=== PATIENT | male | born 1970 | race Two or more races ===

== ENCOUNTER 2018-04-25 12:51 | Inpatient (IN) | payer MEDICAID, OTHER ==
[~2018-04-25] VITALS: Ht 177.8 cm; Wt 115.2 kg
[2018-04-25] MEDS ORDERED: PANTOPRAZOLE 40 MG/10 ML VIAL IV STA (13:44)
[2018-04-25] MEDS ORDERED: SODIUM CHLORIDE 0.9% 500 ML IVB ONE (13:44)
[2018-04-25] MEDS ORDERED: MORPHINE SULFATE 4 MG/ML SYR/VIAL IV ONE (13:45)
[2018-04-25] MEDS ORDERED: ONDANSETRON HCL 4 MG/2 ML VIAL IV ONE (13:45)
[2018-04-25 13:46] LABS: Basophils # (auto) 0.1 uL; Basophils % (auto) 0.8 % (0.0-2.0); Eosinophils # (auto) 0 uL; Eosinophils % (auto) 0.1 % (0.0-7.0); Hematocrit 40.4 % (41.0-53.0); Hemoglobin 13.8 g/dL (13.5-17.5); Lymphocytes # (auto) 1.8 uL; Lymphocytes % (auto) 14.3 % (10.0-50.0); Mean Corpuscular Hemoglobin 29.8 pg (28.0-32.0); Mean Corpuscular Hgb Conc. 34.1 g/dL (32.0-36.0); Mean Corpuscular Volume 87.3 fL (80.0-100.0); Monocytes # (auto) 0.8 uL; Monocytes % (auto) 6.2 % (0.0-12.0); Neutrophils # (auto) 9.8 uL; Neutrophils % (auto) 78.6 % (37.0-80.0); Platelet Count (auto) 305 10^3/uL (140-450); Red Blood Cells 4.63 10^6/uL (4.5-5.90); Red Cell Distribution Width 14.3 % (11.8-14.3); White Blood Cell 12.5 10^3/uL (4.4-10.8)
[2018-04-25 14:02] LABS: Albumin 3.7 g/dL (3.4-5.0); BUN/Creatinine Ratio 11.8; Bilirubin, Total 0.5 mg/dL (0.2-1.0); Calcium 8.5 mg/dL (8.5-10.1); Potassium 3.9 mmol/L (3.5-5.1); Total Protein 8.6 g/dL (6.4-8.2)
[2018-04-25 14:21] LABS: Magnesium 2.3 mg/dL (1.6-2.6)
[2018-04-25 15:26] LABS: Urine Bacteria NONE SEEN /hpf (None Seen); Urine Blood Negative /uL (Negative); Urine Hyaline Cast FEW /lpf (0 - 2); Urine Mucus FEW (None Seen); Urine Specific Gravity 1.029 (1.001-1.035); Urine WBC 3 /hpf (0 - 3)
[2018-04-25] MEDS ORDERED: NITROGLYCERIN 0.4 MG SL TAB SL PRN (15:30)
[2018-04-25] MEDS ORDERED: PANTOPRAZOLE 40 MG/10 ML VIAL IV ONE (15:30)
[2018-04-25] MEDS ORDERED: cefTRIAXone 1GM/10ml IVPUSH 10 ML IV ONE (15:30)
[2018-04-25] MEDS ORDERED: MORPHINE SULF INJ 2 MG/ML SYRINGE 1ML IV PRN (15:30)
[2018-04-25] MEDS ORDERED: DEXTROSE (50%) 50ML SYRG IV PRN (15:30)
[2018-04-25] MEDS: SODIUM CHLORIDE 0.9% 1,000 ML IV SCH ×2 (15:34→23:13)
[2018-04-25] MEDS: MORPHINE SULF INJ 2 MG/ML SYRINGE 1ML IV PRN (15:45)
[2018-04-25] MEDS ORDERED: SODIUM CHLORIDE 0.9% 1,000 ML IV ONE (15:45)
[2018-04-25] MEDS: metroNIDAZOLE 500MG/100ML 100 ML IV SCH ×2 (17:55→23:13)
[2018-04-25] MEDS: ACCU-CHEK COMFORT CURVE STRIP VI SCH ×2 (17:57→23:12)
[2018-04-25] MEDS: InsuLIN REG 1unit/0.01ml Soln (100units/ml) SC SCH ×2 (17:57→23:12)
[2018-04-25] MEDS: MORPHINE SULFATE 4 MG/ML SYR/VIAL IV PRN (20:06)
[2018-04-25] MEDS: PROMETHAZINE HCL 25 MG/ML 1ML IV PRN (20:06)
[2018-04-25 21:00] VITALS: BP 132/78
[2018-04-25 22:00] VITALS: BP 163/92
[2018-04-25] MEDS: LORazepam 2MG/ML-1ML VIAL IV PRN (22:35)
[2018-04-26] MEDS: MORPHINE SULFATE 4 MG/ML SYR/VIAL IV PRN ×4 (04:46→13:11)
[2018-04-26] MEDS: PROMETHAZINE HCL 25 MG/ML 1ML IV PRN ×5 (04:46→21:43)
[2018-04-26 05:00] VITALS: BP 134/67
[2018-04-26] MEDS: ACCU-CHEK COMFORT CURVE STRIP VI SCH ×3 (05:40→17:32)
[2018-04-26] MEDS: metroNIDAZOLE 500MG/100ML 100 ML IV SCH ×4 (05:40→23:58)
[2018-04-26] MEDS: InsuLIN REG 1unit/0.01ml Soln (100units/ml) SC SCH ×3 (05:41→17:38)
[2018-04-26 07:09] LABS: Basophils # (auto) 0 uL; Basophils % (auto) 0.2 % (0.0-2.0); Eosinophils # (auto) 0 uL; Eosinophils % (auto) 0.3 % (0.0-7.0); Hematocrit 38.4 % (41.0-53.0); Hemoglobin 13.1 g/dL (13.5-17.5); Lymphocytes # (auto) 1.2 uL; Lymphocytes % (auto) 10.8 % (10.0-50.0); Mean Corpuscular Hemoglobin 29.9 pg (28.0-32.0); Mean Corpuscular Hgb Conc. 34.2 g/dL (32.0-36.0); Mean Corpuscular Volume 87.5 fL (80.0-100.0); Monocytes # (auto) 0.8 uL; Monocytes % (auto) 6.9 % (0.0-12.0); Neutrophils # (auto) 8.9 uL; Neutrophils % (auto) 81.8 % (37.0-80.0); Platelet Count (auto) 284 10^3/uL (140-450); Red Blood Cells 4.38 10^6/uL (4.5-5.90); Red Cell Distribution Width 14.5 % (11.8-14.3); White Blood Cell 10.9 10^3/uL (4.4-10.8)
[2018-04-26 07:28] LABS: Albumin 3.3 g/dL (3.4-5.0); BUN/Creatinine Ratio 12.3; Bilirubin, Total 0.5 mg/dL (0.2-1.0); Calcium 7.8 mg/dL (8.5-10.1); Potassium 3.7 mmol/L (3.5-5.1); Total Protein 7.7 g/dL (6.4-8.2)
[2018-04-26 08:00] VITALS: BP 155/85
[2018-04-26 09:00] VITALS: BP 155/85
[2018-04-26] MEDS: PANTOPRAZOLE 40 MG/10 ML VIAL IV SCH (09:04)
[2018-04-26] MEDS: cefTRIAXone 1GM/10ml IVPUSH 10 ML IV SCH (09:04)
[2018-04-26] MEDS: SODIUM CHLORIDE 0.9% 1,000 ML IV SCH ×2 (10:42→21:41)
[2018-04-26 13:00] VITALS: BP 160/73
[2018-04-26 17:00] VITALS: BP 137/83
[2018-04-26] MEDS: MORPHINE SULF INJ 2 MG/ML SYRINGE 1ML IV PRN ×2 (17:32→21:42)
[2018-04-26] MEDS: LORazepam 2MG/ML-1ML VIAL IV PRN (19:49)
[2018-04-26 21:53] VITALS: BP 165/86
[2018-04-27] MEDS: MORPHINE SULFATE 4 MG/ML SYR/VIAL IV PRN ×3 (01:52→09:34)
[2018-04-27] MEDS: PROMETHAZINE HCL 25 MG/ML 1ML IV PRN ×6 (01:53→23:51)
[2018-04-27 04:47] VITALS: BP 163/87
[2018-04-27] MEDS: metroNIDAZOLE 500MG/100ML 100 ML IV SCH ×4 (05:46→23:50)
[2018-04-27] MEDS: InsuLIN REG 1unit/0.01ml Soln (100units/ml) SC SCH ×4 (06:00→18:06)
[2018-04-27] MEDS: ACCU-CHEK COMFORT CURVE STRIP VI SCH ×4 (06:14→17:54)
[2018-04-27] MEDS: SODIUM CHLORIDE 0.9% 1,000 ML IV SCH ×2 (06:20→23:50)
[2018-04-27 08:51] VITALS: BP 141/75
[2018-04-27] MEDS: cefTRIAXone 1GM/10ml IVPUSH 10 ML IV SCH (09:32)
[2018-04-27] MEDS: PANTOPRAZOLE 40 MG/10 ML VIAL IV SCH (09:33)
[2018-04-27 09:45] LABS: INR 0.94 (0.9-1.15); Partial Thromboplastin Time 30.9 sec (23.78-33.04); Prothrombin Time 10.1 sec (9.27-12.13)
[2018-04-27] MEDS: LORazepam 2MG/ML-1ML VIAL IV PRN (11:43)
[2018-04-27 12:48] VITALS: BP 140/92
[2018-04-27] MEDS ORDERED: GOLYTELY 4L KIT PO ONE (14:15)
[2018-04-27] MEDS: HYDROmorphone HCL 2 MG/ML VL IV PRN ×3 (15:19→23:52)
[2018-04-27 16:46] VITALS: BP 138/88
[2018-04-27 22:00] VITALS: BP 122/73
[2018-04-28] MEDS: ACCU-CHEK COMFORT CURVE STRIP VI SCH ×4 (00:14→18:00)
[2018-04-28 04:51] VITALS: BP 109/62
[2018-04-28] MEDS: SODIUM CHLORIDE 0.9% 1,000 ML IV SCH ×2 (05:30→13:22)
[2018-04-28] MEDS: metroNIDAZOLE 500MG/100ML 100 ML IV SCH ×2 (05:36→12:00)
[2018-04-28] MEDS: HYDROmorphone HCL 2 MG/ML VL IV PRN ×4 (05:37→18:30)
[2018-04-28] MEDS: PROMETHAZINE HCL 25 MG/ML 1ML IV PRN ×4 (05:37→18:31)
[2018-04-28] MEDS: InsuLIN REG 1unit/0.01ml Soln (100units/ml) SC SCH ×4 (05:52→18:00)
[2018-04-28] MEDS ORDERED: GOLYTELY 4L KIT PO ONE (06:00)
[2018-04-28 09:00] VITALS: BP 120/69
[2018-04-28] MEDS: PANTOPRAZOLE 40 MG/10 ML VIAL IV SCH (10:01)
[2018-04-28] MEDS: cefTRIAXone 1GM/10ml IVPUSH 10 ML IV SCH (10:01)
[2018-04-28 13:07] VITALS: BP 122/70
[2018-04-28 17:00] VITALS: BP 126/72
== END 2018-04-28 21:40 | disposition short-term general hospital (02) | DRG 720 ==
LOC: ER 12:54 → TELE 12:55 → TELE-CENTR 18:34
PROVIDERS: ADMIT Internal Medicine; ATTEND Internal Medicine Pulmonary Disease
DX: A41.9 Sepsis, unspecified organism (principal); K63.2 Fistula of intestine; K76.0 Fatty (change of) liver, not elsewhere classified; E66.9 Obesity, unspecified; Z68.36 Body mass index [BMI] 36.0-36.9, adult; F17.210 Nicotine dependence, cigarettes, uncomplicated; K57.30 Diverticulosis of large intestine without perforation or abscess without bleeding; K80.20 Calculus of gallbladder without cholecystitis without obstruction; R73.9 Hyperglycemia, unspecified; Z93.3 Colostomy status; K62.5 Hemorrhage of anus and rectum
CPT/HCPCS: 36415; 74176; 78226; 80053; 81001; 82150; 82378; 82962; 83036; 83690; 83735; 85025; 85610; 85652; 85730; 86141; 86850; 86900; 86901; 87086; 87493; 93005; 96361; 96374; 96375; C9113; J0696; J1815; J2405; J3490

== ENCOUNTER 2018-07-13 19:47 | Emergency (ER) | payer MEDICAID ==
[~2018-07-13] VITALS: Ht 177.8 cm; Wt 106.6 kg
[2018-07-13 20:05] VITALS: BP 146/86
[2018-07-13 20:54] LABS: Basophils # (auto) 0.1 uL; Basophils % (auto) 0.6 % (0.0-2.0); Eosinophils # (auto) 0 uL; Hematocrit 44.3 % (41.0-53.0); Hemoglobin 14.5 g/dL (13.5-17.5); Lymphocytes # (auto) 1.3 uL; Mean Corpuscular Hemoglobin 28.8 pg (28.0-32.0); Mean Corpuscular Hgb Conc. 32.8 g/dL (32.0-36.0); Mean Corpuscular Volume 87.9 fL (80.0-100.0); Monocytes # (auto) 0.8 uL; Monocytes % (auto) 6.4 % (0.0-12.0); Neutrophils # (auto) 9.8 uL; Platelet Count (auto) 367 10^3/uL (140-450); Red Blood Cells 5.03 10^6/uL (4.5-5.90); Red Cell Distribution Width 13.8 % (11.8-14.3)
[2018-07-13 21:10] LABS: BUN/Creatinine Ratio 17.9; Potassium 3.5 mmol/L (3.5-5.1)
== END 2018-07-13 22:14 | disposition left against medical advice (07) ==
LOC: ER 19:56
DX: R10.31 Right lower quadrant pain (principal); Z53.21 Procedure and treatment not carried out due to patient leaving prior to being seen by health care provider
CPT/HCPCS: 36415; 80048; 85025

== ENCOUNTER 2019-02-16 10:04 | Emergency (ER) | payer MEDICAID ==
[~2019-02-16] VITALS: Ht 177.8 cm; Wt 106.6 kg
[2019-02-16 10:33] LABS: Basophils # (auto) 0.1 uL; Basophils % (auto) 0.7 % (0.0-2.0); Eosinophils # (auto) 0.1 uL; Eosinophils % (auto) 0.7 % (0.0-7.0); Hematocrit 42.1 % (41.0-53.0); Hemoglobin 14.5 g/dL (13.5-17.5); Lymphocytes # (auto) 1.4 uL; Lymphocytes % (auto) 10.6 % (10.0-50.0); Mean Corpuscular Hemoglobin 30.4 pg (28.0-32.0); Mean Corpuscular Hgb Conc. 34.4 g/dL (32.0-36.0); Mean Corpuscular Volume 88.4 fL (80.0-100.0); Monocytes % (auto) 7.8 % (0.0-12.0); Neutrophils # (auto) 10.4 uL; Neutrophils % (auto) 80.2 % (37.0-80.0); Nucleated Red Blood Cells % 0.1 %; Platelet Count (auto) 362 10^3/uL (140-450); Red Blood Cells 4.76 10^6/uL (4.5-5.90); Red Cell Distribution Width 13.7 % (11.8-14.3)
[2019-02-16] MEDS ORDERED: NITROGLYCERIN 0.4 MG SL TAB SL ONE (10:45)
[2019-02-16] MEDS ORDERED: ASPirin 81 mg TAB PO ONE (10:45)
[2019-02-16 10:55] LABS: Anion Gap 7 (5-15); Blood Urea Nitrogen 14 mg/dL (7-18); Calcium 8.7 mg/dL (8.5-10.1); Carbon Dioxide 25 mmol/L (21-32); Chloride 104 mmol/L (98-107); Glucose 128 mg/dL (74-106); Potassium 3.8 mmol/L (3.5-5.1); Sodium 136 mmol/L (136-145)
[2019-02-16] MEDS ORDERED: cefTRIAXone SOD 1,000 MG VL IM ONE (11:00)
[2019-02-16 11:01] LABS: Alanine Aminotransferase 41 U/L (16-61); Alkaline Phosphatase 106 U/L (45-117); Aspartate Aminotransferase 27 U/L (15-37); BUN/Creatinine Ratio 18.7; Bilirubin, Total 0.5 mg/dL (0.2-1.0); GFR African American 142 mL/min; GFR Non-African American 117 mL/min; Total Protein 8.1 g/dL (6.4-8.2)
[2019-02-16 12:30] VITALS: BP 133/78
== END 2019-02-16 14:04 | disposition home or self-care (01) ==
LOC: ER 10:08
DX: R07.89 Other chest pain (principal); J40 Bronchitis, not specified as acute or chronic; R51 Headache; F17.210 Nicotine dependence, cigarettes, uncomplicated
CPT/HCPCS: 36415; 71046; 80053; 84484; 85025; 93005; 96372; 99284; J0696